=== PATIENT | female | born 1960 | race Caucasian/White ===

== ENCOUNTER 2018-12-19 11:05 | Observation (INO) | payer MEDICARE, OTHER ==
[~2018-12-19] VITALS: Ht 162.6 cm; Wt 96.4 kg
--- NOTE | ~2018-12-19 | HEMODYNAMI ---
PATIENT:REBECA CHENEY MEDICAL RECORD: [id number] : 58 [facility] ADMISSION DATE: 12/19/18 Generatedon:12/20/201810:18 Patient name: REBECA CHENEY Patient #: [id number] SSN: DO B: 1960 Date of study: 12/20/2018 Page: Of Hemodynamic Procedure Report Patient Data Patient Demographics Procedure consent was obtained First Name: REBECA Gender: Female Last Name: NONI : 1960 Patient #: [id number] Age: 58 year(s) Race: Unknown Additional ID: [id number] Contact details [address]: [address] [place] [address] DRIVE State: [place] City: [place] Zip code: [address] Admission Admission Data Admission Date: 12/19/2018 Admission Time: 12:34 Arrival Date: 12/19/2018 Arrival Time: 12:34 Admit Source: Emergency Insurance Payor: Medicare department Room #: D.2122 Height (in.): 64.17 BSA: 2.01 (m2) Height (cm.): 163 BMI: 36.13 (kg/m2) Weight (lbs.): 211.64 Weight (kg.): 96 Lab Results Lab Result Date: 12/20/2018 Lab Result Time: 0:00 Biochemistry Name Units Result Min Max BUN mg/dl 12 --(-*--)-- 7 18 Creatinine mg/dl 0.7 --(*---)-- 0.6 1.3 eGFR ml/min 90 --(*---)-- 90 120 NONAFRICAN CBC Name Units Result Min Max Hemoglobin g/dl 13.4 -*(----)-- 13.5 17.5 Procedure Procedure Types Cath Procedure Diagnostic Procedure LHC LHC w/Coronaries Sedation Charges Moderate Sedation up to 15 minutes Procedure Description Procedure Date Procedure Date: 12/20/2018 Procedure Start Time: 10:03 Procedure End Time: 10:12 Procedure Staff Name Function Meagan Bowie RT Monitor Alexandr Dumas MD Performing Physician Ifeoma De La Fuente RT Scrub Jemma Owen RN Nurse Procedure Data Cath Procedure Fluoroscopy Diagnostic fluoroscopy Total fluoroscopy Time: 1.7 time: 1.7 min min Diagnostic fluoroscopy Total fluoroscopy dose: 270 dose: 270 mGy mGy Contrast Material Contrast Material Type Amount (ml) Isovue 300 67 Entry Location Entry Primary Successful Side Size Upsize Upsize Entry Closure Succes sful Closure Location (Fr) 1 (Fr) 2 (Fr) Remarks Device Remarks Femoral Right 5 Fr Exoseal artery Estimated blood loss: 5 ml Diagnostic catheters Device Type Used For End Catheter Placement MULTIPACK JL 4.0 5Fr Left Coronary catheter Angiography MULTIPACK 3DRC 5Fr Right Coronary catheter Angiography MULTIPACK Pigtail 5 Fr LV Angiography catheter Procedure Complications No complications Procedure Medications Medication Administration Route Dosage 0.9% NaCl I.V. 100 ml/hr Oxygen etCO2 Nasal cannula 2 l/min Lidocaine 2% added to field 20 Heparin Flush Bag added to field 2 bags (1000units/500ml NS) Versed I.V. 2 mg Fentanyl I.V. 50 mcg Fentanyl I.V. 50 mcg Hemodynamics Rest HGB: 13.4 (g/dl) O2 Consumption: Estimated: 188.58 (ml/min) O2 Consumption index ed: Estimated:93.82 (ml/min/m) Heart Rate: 67 (bpm) Pressure Samples Time Site Value (mmHg) Purpose Heart Use Rate(bpm) 10:09 LV 130/15,20 Snapshot 64 Gradients Valve Time Site Site Mean SEP/DFP Peak To Heart Use 1 2 (mmHg) (sec/min) Peak Rate (mmHg) (bpm) Aortic 10:09 LV AO 67 Snapshots Pre Cath Intra NCS Post Cath Vital Signs Time Heart Resp SPO2 etCO2 NIBP (mmHg) Rhythm Pain Sedation Rate (ipm) (%) (mmHg) Status Level (bpm) 9:55:55 65 17 98 48 140/82(105) NSR 0 (11) 10(A) , No pain 10:00:13 66 14 98 15.7 131/73(98) NSR 0 (11) 10(A) , No pain 10:05:12 66 14 98 26.2 Measuring NSR 0 (11) 9(A) , No pain 10:05:31 65 16 98 20.9 129/77(114) NSR 0 (11) 9(A) , No pain 10:10:30 70 18 97 53.2 Measuring NSR 0 (11) 9(A) , No pain 10:10:50 71 17 98 46.4 131/81(100) NSR 0 (11) 10(A) , No pain Medications Time Medication Route Dose Verified Delivered Reason Notes Eff ectiveness by by 9:56:24 0.9% NaCl I.V. 100 Alexandr Jemma used for ml/hr Piter Brayden procedure MD DANG 9:56:30 Oxygen etCO2 2 Alexandr Jemma used for Nasal l/min Piter Brayden procedure cannula MD DANG 9:56:36 Lidocaine 2% added 20ml Alexandr Strange for local to vial [facility] anesthetic field MD DAVIS 9:56:40 Heparin Flush added 2 Alexandr Alexandr used for Bag to bags [facility] procedure (1000units/500ml field MD DAVIS NS) 9:57:11 Versed I.V. 2 mg Alexandr Jemma for PiterHayder Owen sedation MD DANG 9:57:24 Fentanyl I.V. [address] mcg [address] Hayder Owen sedation MD DANG 10:02:21 Fentanyl I.V. 50 Alexandr Vegayla for mcg [address] Hayder Owen sedation MD DANGcorrectional supervisor lieutenant Log Time Note 9:29:34 Procedure Status Urgent Heart Cath (IP). 9:29:36 Time tracking: Call back (After hours or weekends) 9:29:39 Jemma Owen RN sent for patient. Start room use. 9:43:19 Lab Result : eGFR NONAFRICAN 90 ml/min 9:43:19 Lab Result : Hemoglobin 13.4 g/dl 9:43:19 Lab Result : BUN 12 mg/dl 9:43:19 Lab Result : Creatinine 0.7 mg/dl 9:43:28 1) 90+ Normal kidney functon but urine findings or structural abnormalities or genetic trait point to kidney disease. 9:43:34 Maximum allowable contrast dose (3.7 X eGFR X 0.75)250 ml. 9:43:51 Arrival Date: 12/19/2018 12:34:00 PM 9:43:57 Insurance Payor : Medicare 9:44:01 Admit Source: Emergency department 9:44:07 Patient Height : 64.17 inches 9:44:11 Patient Weight : 211.64 lbs 9:45:52 Plan of Care:Hemodynamics will remain stable., Cardiac rhythm will remain stable., Comfort level will be maintained., Respiratory function will remain adequate., Patient/ family verbilizes understanding of procedure., Procedure tolerated without complication., Recovers from procedure without complications.. 9:45:58 ACC Patient presents with Unstable Angina CCS Anginal Class 4--Inability to carry out any physical activity w/o angina. Angina may occur at rest. 9:54:37 Vital chart was started 9:55:16 Patient received from Med II to CCL 1 Alert and oriented. Tansferred to table in Supine position. 9:55:18 Signed procedure consent form obtained from patient. 9:55:19 Warm blankets applied, and anat hugger turned on for patient comfort. 9:55:20 ECG and BP/O2 sat monitors applied to patient. 9:55:20 Correct patient and procedure confirmed by team. 9:55:22 Baseline sample Acquired. 9:55:25 Rhythm: sinus rhythm 9:55:27 Full Disclosure recording started 9:55:30 H&P Date Dictated: 12/20/2018 New H&P dictated by physician.. 9:55:32 Pre-op teaching completed and patient verbalized understanding. 9:55:32 Pre-procedure instructions explained to patient. 9:55:34 Family in patients room. 9:55:35 Patient NPO since Midnight. 9:55:38 Is the patient allergic to Iodine/contrast media? No. 9:55:39 Was the patient premedicated? No 9:55:41 Is patient on blood thinner?No 9:55:43 Patient diabetic? No. 9:55:46 Previous problem with sedation/anesthesia? No ? 9:55:48 Snore? Yes 9:55:49 Sleep apnea? Yes 9:55:50 Opens mouth fully? Yes 9:55:50 Deviated septum? No 9:55:51 Sticks out tongue? Yes 9:55:53 Airway obstruction? No ? 9:55:56 Dentures? No ? 9:56:00 Pre procedure: right dorsailis pedis pulse 2+ Normal; easily identifiable; not easily obliterated 9:56:02 Pre procedure: left dorsailis pedis pulse 2+ Normal; easily identifiable; not easily obliterated 9:56:04 Patient pain scale 0/10 ?. 9:56:20 IV patent on arrival in right forearm with 0.9% NaCl at [facility]. 9:56:22 Lab results completed and on chart. 9:56:24 0.9% NaCl 100 ml/hr I.V. was administered by Jemma Owen RN; used for procedure; Verbal order read back and verified. 9:56:26 Right groin area was prepped with chlora-prep and draped in sterile fashion 9:56:28 Sharps counted by scrub and verified by R.N. 9:56:28 Alarms reviewed by R. N. 9:56:30 --------ALL STOP TIME OUT------ 9:56:30 Physician arrived 9:56:30 Oxygen 2 l/min etCO2 Nasal cannula was administered by Jemma Owen RN; used for procedure; Verbal order read back and verified. 9:56:31 Final Timeout: patient, procedure, and site verified with staff and physician. All members of the team are in agreement. 9:56:34 Right groin site verified by team. 9:56:36 Lidocaine 2% 20ml vial added to field was administered by Alexandr Dumas MD; for local anesthetic; Verbal order read back and verified. 9:56:38 Fire Safety Assessment: A--An alcohol-based skin anteseptic being used preoperatively., C--Open oxygen or nitrous oxide is being used., D--An ESU, laser, or fiber-optic light is being used. 9:56:40 Heparin Flush Bag (1000units/500ml NS) 2 bags added to field was administered by Alexandr Dumas MD; used for procedure; Verbal order read back and verified. 9:56:41 Physical assessment completed. ASA score P 2 - A patient with mild systemic disease as per Alexandr Dumas MD. 9:56:46 Sedation plan: IV Moderate Sedation Medication:Versed, Fentanyl 9:56:49 Use device set Femoral Dx 9:56:50 ACIST Syringe (56782) opened to sterile field. 9:56:51 Medline Cath Pack ([id number]) opened to sterile field. 9:56:51 Bag Decanter (2002) opened to sterile field. 9:56:53 ACIST Manifold (02571) opened to sterile field. 9:56:53 ACIST Hand Control (23705) opened to sterile field. 9:56:54 Tegaderm 4 x 4 (1626W) opened to sterile field. 9:56:54 DIAGNOSTIC Multipack 5Fr catheter set (QX2314) opened to sterile field. 9:56:55 SHEATH 5FR Bethany (OTH052) opened to sterile field. 9:56:56 EMERALD Guide Wire (035-746) opened to sterile field. 9:57:11 Versed 2 mg I.V. was administered by Jemma Owen RN; for sedation; Verbal order read back and verified. 9:57:24 Fentanyl 50 mcg I.V. was administered by Jemma Owen RN; for sedation; Verbal order read back and verified. 10:00:30 Procedure started. 10:02:21 Fentanyl 50 mcg I.V. was administered by Jemma Owen RN; for sedation; Verbal order read back and verified. 10:03:21 Local anesthetic to right femoral artery with Lidocaine 2% by Alexandr Dumas MD.INITIAL ACCESS ONLY 10:03:57 A 5 Fr sheath was inserted into the Right Femoral artery 10:04:14 A MULTIPACK JL 4.0 5Fr catheter was advanced over the wire and used for Left Coronary Angiography. 10:04:40 LCA angiography performed. 10:04:44 Injector settings: Ml/sec: 3, Volume: 6, 10:05:53 Catheter removed. 10:06:12 A MULTIPACK 3DRC 5Fr catheter was advanced over the wire and used for Right Coronary Angiography. 10:06:34 RCA angiography performed. 10:06:38 Injector settings: Ml/sec: 3, Volume: 6, 10:06:56 Bilateral carotid angiography performed. 10:08:09 Injector settings: Ml/sec: 3, Volume: 6, 10:08:16 Catheter removed. 10:08:20 A MULTIPACK Pigtail 5 Fr catheter was advanced over the wire and used for LV Angiography. 10:09:10 LV hemodynamics recorded. 10:09:11 LV gram done using SHOEMAKER 10:09:14 Injector settings: Ml/sec: 5, Volume: 15, 10:09:21 EF : 55 % 10:09:27 EXOSEAL 5Fr (EX500) opened to sterile field. 10:09:32 ACCDominant side:Right 10:09:35 Catheter removed. 10:09:44 Sheath removed intact; hemostasis achieved with Exoseal to the Right Femoral artery. 10:10:24 Procedure ended.(Physican Out) 10:11:08 Fluoroscopy time 01.70 minutes. 10:11:12 Fluoroscopy dose: 270 mGy 10:11:12 Flurop Dose total: 270 10:11:18 Dose Area Product 39996 mGy/cm. 10:11:22 Contrast amount:Isovue 300 67ml. 10:11:23 Sharps counted by scrub and verified by R.N. 10:11:24 Insertion/operative site no bleeding no hematoma. 10:11:27 Post-op/insertion site Right Femoral artery dressed using a 4 x 4 and Tegaderm. 10:11:30 Post procedure rhythm: unchanged. 10:11:33 Estimated blood loss: 5 ml 10:11:34 Post procedure instruction explained to patient.Patient verbalizes understanding. 10:11:35 Patient needs reinforcement of post procedure teaching. 10:11:44 Procedure type changed to Cath procedure, Diagnostic procedure, LHC, LHC w/Coronaries, Sedation Charges, Moderate Sedation up to 15 minutes 10:11:45 Procedure and supply charges have been captured, reviewed, submitted and are correct. 10:11:50 Procedure Complication : No complications 10:11:56 See physician's report for complete and final results. 10:11:56 Vital chart was stopped 10:11:59 Report given to [facility]. 10:12:02 Patient transfered to [facility] with Stretcher. 10:12:04 Full Disclosure recording stopped 10:12:04 Procedure ended. 10:12:16 End room use (Document Last) 10:14:55 Jemma Owen RN was relieved by Jemma Owen RN as monitoring person Device Usage Item Name Manufacture Quantity Catalog Hospital Part Current Minimal L ot# / Number Charge Number Stock Stock Serial# Code ACIST Acist 1 75010 568458 552825 794039 20 Syringe Snapfinger[employer] Inc. (46450) Systems Inc Bag Microtek 1 971693 37248 258952 5 Decanter Medical Inc. () Medline Medline 1 [id number] 704086 68382 214422 5 Cath Pack ([id number]) ACIST Hand Acist 1 25890 118473 620974 927294 5 Control Medical (16108) Systems Inc ACIST Acist 1 45894 176012 597721 192667 5 Manifold Medical (86201) Systems Inc DIAGNOSTIC Cardinal 1 [id number] 041181 39664 059424 30 Multipack Health 5Fr catheter set (UX6692) Tegaderm 4 3M 1 1626W 111127 076702 890325 5 x 4 (1626W) SHEATH 5FR Terumo 1 SYV480 812609 231158 725555 5 Bethany (GXD510) EMERALD Cardinal 1 502455 042056 906917 567834 5 Guide Wire Boardvote (502-076) MULTIPACK Cardinal 1 604833 5 JL 4.0 5Fr Health catheter MULTIPACK Cardinal 1 702961 5 3DRC 5Fr Boardvote catheter MULTIPACK Cardinal 1 080554 5 Pigtail 5 Health Fr catheter EXOSEAL 5Fr Cardinal 1 EX500 091744 764583 475609 10 (EX500) Health Signature Audit Roland Stage Time Signature Unsigned Intra-Procedure 12/20/2018 Meagan Bowie 10:14:35 AM RT(R) Intra-Procedure 12/20/2018 Alexandr Finley 10:15:21 AM Hayder DAVIS; Meagan Bowie RT(R) [facility] [address] [place] [address]
[2018-12-19 11:38] LABS: BASOPHILS 0.3 % (0-2); EOSINOPHILS 1.3 % (0-7); HEMATOCRIT 41.3 % (36.0-48.0); HEMOGLOBIN 14.4 g/dL (12-16); IMMATURE GRANULOCYTES 0.2 % (0-5); LYMPHOCYTES 20.1 % (15-50); MCH 31.4 pg (26.0-34.0); MCHC 34.9 g/dL (31.0-37.0); MEAN PLATELET VOLUME 9.6 fL (7.4-10.4); MONOCYTES 7.5 % (2-11); NEUTROPHILS 70.6 % (40-80); PLATELET COUNT 245 10x3/uL (130-400); RBC 4.59 10x6/uL (4.00-5.40); RDW 11.8 % (11.5-14.5); WBC 6.3 10x3/uL (4.8-10.8)
[2018-12-19 11:47] LABS: APTT 35.3 SECONDS (22.8-39.4); INR 0.98 (0.85-1.17); PROTIME 12.5 SECONDS (11.6-15.0)
[2018-12-19 11:53] LABS: ALBUMIN 3.8 g/dL (3.4-5.0); ALKALINE PHOSPHATASE 123 U/L (46-116); ALT (SGPT) 43 U/L (10-68); BILIRUBIN - TOTAL 0.31 mg/dL (0.2-1.3); CALC OSMOLALITY 267 mosm/kg (275-300); CALCIUM 8.7 mg/dL (8.5-10.1); CARBON DIOXIDE 31.7 mmol/L (21.0-32.0); CHLORIDE - SERUM 98 mmol/L (98-107); CREATININE - SERUM 0.9 mg/dL (0.6-1.3); GLUCOSE 98 mg/dL (74-106); POTASSIUM - SERUM 4.4 mmol/L (3.5-5.1); PROTEIN - SERUM 7.6 g/dL (6.4-8.2); SODIUM 134 mmol/L (136-145); UREA NITROGEN 12 mg/dL (7-18); eGFR NON AFRICAN AMERICAN 68 mL/min (90-120)
[2018-12-19 12:05] LABS: CKMB 0.4 U/L (0.0-3.6); CREATINE KINASE 59 UL (21-215); MAGNESIUM - SERUM 1.9 mg/dL (1.8-2.4); TROPONIN-I < 0.017 ng/mL (0.000-0.060)
[2018-12-19 12:41] VITALS: BP 117/49
--- NOTE | 2018-12-19 15:24 | NUR ---
PT ARIVED VIA WHEELCHAIR TO ROOM. ALERT AND ORIENTED, UP WITHOUT ASSIST. CL IN REACH, SRX2W. AT BEDSIDE
[2018-12-19] MEDS ORDERED: SOMA350 MG PO (15:32)
[2018-12-19] MEDS ORDERED: ADDERALL 10 MG10 MG PO (15:32)
[2018-12-19] MEDS ORDERED: VIIBRYD40 MG PO (15:32)
[2018-12-19] MEDS ORDERED: GEODON60 MG PO (15:34)
[2018-12-19] MEDS ORDERED: ESTRACE 0.5 MG0.5 MG PO (15:34)
[2018-12-19] MEDS ORDERED: PERCOCET 10-321 EAC1 (15:35)
[2018-12-19] MEDS ORDERED: TRILEPTAL300 MG PO (15:35)
[2018-12-19] MEDS ORDERED: ULTRAM50 MG PO (15:36)
[2018-12-19] MEDS ORDERED: UNITHROID75 MCG PO (15:37)
[2018-12-19 17:56] LABS: CKMB 0.6 U/L (0.0-3.6); CREATINE KINASE 49 UL (21-215); TROPONIN-I < 0.017 ng/mL (0.000-0.060)
[2018-12-19 18:16] VITALS: Ht 162.6 cm; Wt 96.4 kg
--- NOTE | 2018-12-19 18:33 | NUR ---
ASSESSMENT COMPLETE AT THIS TIME NAD NOTED PT DENIES ANY PAIN OR DISCOMFORT NAD NOTED AT BEDSIDE
--- NOTE | 2018-12-19 19:15 | NUR ---
RECEIVED REPORT, WILL ASSUME CARE OF PT, DENIES ANY NEEDS, BED IS LOW, SRX2, CALL LIGHT IN REACH, WILL CONTINUE PLAN OF CARE
[2018-12-19 19:59] VITALS: BP 131/68
--- NOTE | 2018-12-19 20:21 | NUR ---
HOME HEALTH BILLING SPECIALIST ASSISTED PT TO SHOWER
[2018-12-19 23:42] VITALS: BP 118/52
[2018-12-20 03:50] VITALS: BP 113/56
--- NOTE | 2018-12-20 04:55 | NUR ---
I have reviewed this patient and I concur with the Shift Assessment completed by the Licensed Practical Nurse today this shift.
[2018-12-20 06:23] LABS: BASOPHILS 0.4 % (0-2); EOSINOPHILS 2.2 % (0-7); HEMATOCRIT 38.5 % (36.0-48.0); HEMOGLOBIN 13.4 g/dL (12-16); IMMATURE GRANULOCYTES 0.2 % (0-5); LYMPHOCYTES 27.8 % (15-50); MCHC 34.8 g/dL (31.0-37.0); MCV 89.1 fL (80.0-100.0); MEAN PLATELET VOLUME 9.8 fL (7.4-10.4); MONOCYTES 9.7 % (2-11); NEUTROPHILS 59.7 % (40-80); PLATELET COUNT 238 10x3/uL (130-400); RBC 4.32 10x6/uL (4.00-5.40); RDW 11.6 % (11.5-14.5)
[2018-12-20 06:39] LABS: ALBUMIN 3.3 g/dL (3.4-5.0); ALKALINE PHOSPHATASE 109 U/L (46-116); ALT (SGPT) 49 U/L (10-68); BILIRUBIN - TOTAL 0.24 mg/dL (0.2-1.3); CALC OSMOLALITY 267 mosm/kg (275-300); CALCIUM 8.5 mg/dL (8.5-10.1); CARBON DIOXIDE 29.2 mmol/L (21.0-32.0); CHLORIDE - SERUM 98 mmol/L (98-107); CREATININE - SERUM 0.7 mg/dL (0.6-1.3); GLUCOSE 95 mg/dL (74-106); MAGNESIUM - SERUM 1.8 mg/dL (1.8-2.4); POTASSIUM - SERUM 3.9 mmol/L (3.5-5.1); PROTEIN - SERUM 6.7 g/dL (6.4-8.2); SODIUM 134 mmol/L (136-145); UREA NITROGEN 12 mg/dL (7-18); eGFR NON AFRICAN AMERICAN > 90 mL/min (90-120)
--- NOTE | 2018-12-20 07:34 | NUR ---
PT AWAKE AND ORIENTED, NO COMPLAINTS OR CONCERNS AT THIS TIME. ALL QUESTIONS ANSWERED TO THE BEST OF MY ABILITY. CL IN REACH, SRX2.
[2018-12-20 08:00] VITALS: BP 130/67
--- NOTE | 2018-12-20 09:48 | NUR ---
PT TAKEN TO DIRECTOR OF SOCIAL SERVICES.
--- NOTE | 2018-12-20 10:17 | NUR ---
CLEAN CATH, RIGHT GROIN 5 SIERRA LEONEAN EXOCEAL.
--- NOTE | 2018-12-20 12:13 | OP ---
PATIENT NAME: REBECA CHENEY MEDICAL RECORD: [id number] :58 LOCATION:D.M2 D.2122 ADMISSION DATE:12/19/18 SURGEON: DORI PATTERSON MD DATE OF OPERATION: 12/20/2018 PROCEDURE: Left heart catheterization, selective coronary angiography, right femoral artery approach. CATHETERS: A 5-Urdu sheath, 5/4 left and right Mukesh, 5/4 pig. The procedure was well tolerated. The patient returned to gupta. Sheath removed. ExoSeal device placed. FINDINGS: Left ventriculography in 30-degree SHOEMAKER view: Normal wall motion, normal systolic function. CORONARY ANATOMY: LEFT MAIN: Left main is free of disease. LAD: Free of disease in the diagonal system. CIRCUMFLEX: Free of disease in the marginal system. RIGHT CORONARY ARTERY: Dominant artery, gives rise to PDA, free of disease. DESCRIPTION OF PROCEDURE: The catheter was drawn proximally and the right common carotid was selectively engaged. It shows smooth-walled vessel, free of disease. Right external carotid showed some wall disease and no flow obstructive. Right internal carotid is free of disease. The left common carotid was then selectively engaged. This showed a smooth-walled left common carotid, free of disease. Left internal carotid, there was smooth-walled vessel, free of disease. Left external carotid, again some wall disease, but no flow obstructive stenosis. IMPRESSION: Normal LV systolic function, normal coronary anatomy. No significant cerebrovascular disease. TRANSINT:[id number] Voice Confirmation ID: [id number] DOCUMENT ID: [id number] DORI PATTERSON MD at 1213 CC: [id number] DICTATION DATE: 12/20/18 1024 DOT COMPLIANCE SPECIALIST: 12/20/18 1119 ADM IN [facility] [address] [place] [address]
--- NOTE | 2018-12-20 12:13 | EC ---
PATIENT:REBECA CHENEY DATE OF SERVICE: 12/19/18 SEX: F MEDICAL RECORD: [id number] DATE OF : 58 LOCATION:D.M2 D.212 AGE OF PATIENT: 58 ADMISSION DATE: 12/19/18 REFERRING PHYSICIAN: INTERPRETING PHYSICIAN: DORI PATTERSON MD ECHOCARDIOGRAM REPORT ECHO CHARGES 4 ECHO COMPLETE Date: 12/19/18 CLINICAL DIAGNOSIS: CP ECHOCARDIOGRAPHIC MEASUREMENTS (adult normal given) AC root (d.<3.7cm) 3.2 cm LV Septum d (<1.2 cm> 1.3 cm Valve Excursion 2.0 cm LV Septum (systole) 1.9 cm Left Atria (s.<4.0cm> 4.0 cm LVPW d(<1.2cm) 1.1 cm RV (d.<2.3cm) 2.8 cm LVPW (sytole) 1.7 cm LV diastole(<5.6CM) 6.1 cm MV E-F(>70mm/sec) cm LV systole 3.5 cm LVOT Diameter 1.7 cm MV exc.(>10mm) cm Est.ejection fraction (50-75%) % DOPPLER: LVIT cm/sec A 60.0 cm/sec E 90.0 cm/sec LA cm/sec RVSP 26.0 mmHg LVOT 86.0 cm/sec AOP1/2T m/s Asc. Ao 126 cm/sec RVOT 56.0 cm/sec RA cm/sec PA 96.0 cm/sec AV Gradient Peak 6.3 mmHg AV Mean 3.6 mmHg AV Area 1.2 cm MV Gradient Peak 3.3 mmHg MV Mean 1.3 mmHg MV Area cm COMMENTS: Toolsmith: Susanne MONTEJOOE Stamp Maker: 3 Dr. Anderson TAPE# PACS Pericardial Effusion N DATE OF SERVICE: Adequate 2D, color flow, spectral Doppler, and M-mode. Borderline LVH. LV internal dimensions are normal. Wall motion is normal. EF is greater than or equal to 55%. Aortic valve is tricuspid. No evidence of stenosis by Doppler interrogation. Left atrium is normal at 4.0 cm. Mitral valve shows no prolapse. Trace MR. Right-sided chambers are grossly normal. Trace TR. TRANSINT:[id number] Voice Confirmation ID: [id number] DOCUMENT ID: [id number] ECHOCARDIOGRAM REPORT [id number] REBECA CHENEY,DORI Hinton MD at 1213 CC: [id number] DICTATION DATE: 12/20/18903 BUSINESS ETHICS PROFESSOR: 12/20/18 1059 ADM IN [place] [id number] [place] [id number]
--- NOTE | 2018-12-20 13:26 | NUR ---
PT UP AND WALKING POST CATH, NO PROBLEMS. NO BLEEDING AT SITE. NO COMPLAINTS OR CONCERNS VOICED AT THIS TIME. DC PENDING
--- NOTE | 2018-12-20 13:47 | NUR ---
PT ESCORTED OUT VIA WHEELCHAIR TO POV.
--- NOTE | 2018-12-21 09:29 | MORECARE ---
CASE MANAGEMENT DISCHARGE SUMMARY PATIENT: REBECA CHENEY UNIT: [id number] ADM DATE: 12/19/18 AGE: 58 : 58 SEX: F ROOM/BED: D.7512 AUTHOR: JOSÉ SORTO PHYSICIAN: REFERRING PHYSICIAN: INDERJIT TA DO DATE OF SERVICE: 12/21/18 Discharge Plan Patient Name: REBECA CHENEY Facility: [facility]:[place] : 1960 Planned Disposition: Home Anticipated Discharge Date: 12/20/18 Discharge Date: 12/20/2018 Expected LOS: 1 Initial Reviewer: [email or web address] Initial Review Date: 12/21/2018 Generated: 12/21/18 10:29 am Patient Name: REBECA CHENEY Page [id number] at 0929 All edits/amendments must be made on the electronic document DICTATION DATE: 12/21/18928 CLOUD SUBJECT MATTER EXPERT: DM 12/21/18928 RPT#: [id number] DC DATE:12/20/18 STATUS: DIS IN [facility] [address] [place] [address] END OF REPORT
--- NOTE | 2018-12-23 11:07 | CN ---
PATIENT NAME:REBECA CHENEY MEDICAL RECORD: [id number] : 58 LOCATION:D. D.2122 ADMIT DATE: 12/19/18 ACCOUNT: [id number] CONSULTING PHYSICIAN: DORI PATTERSON MD REFERRING PHYSICIAN: INDERJIT TA DO DATE OF CONSULTATION: 12/20/2018 HISTORY OF PRESENT ILLNESS: A 58-year-old female with no known history of coronary artery disease has a strong family history of coronary artery disease, about a 4-day history of rapidly progressive symptomatology with chest tightness and pressure with exertion, secondary symptoms of visual changes, lightheadedness, dizziness and had near syncope consistent with amaurosis as well. She was awakened with chest pain radiating to the jaw on the date of admission. We are asked to see her concerning her cardiovascular status. PAST MEDICAL HISTORY: Includes: 1. History of hyperlipidemia, currently not on therapy. 2. She has a history of bipolar disorder. 3. Hypothyroidism. 4. Fibromyalgia. ALLERGIES: INCLUDE SULFA, LAMICTAL, LATEX. MEDICATIONS: On admission include Soma 350 q.h.s., Viibryd 40 mg p.o. daily, Geodon 60 q.h.s., Trileptal 300 mg b.i.d., tramadol 50 q.6 hours p.r.n., Adderall 10 mg t.i.d., Synthroid 75 mcg every day. SOCIAL HISTORY: Nonsmoker, nondrinker. No set exercise program. REVIEW OF SYSTEMS: The patient reports easy bruising but reports no swollen glands. The patient reports no fever, no night sweats, no significant weight gain, no significant weight loss. No significant exercise tolerance. The patient reports no dry eyes, no irritation, no vision change. Patient reports no difficulty hearing and no ear pain. Patient reports no frequent nose bleeds or nose and sinus problems. Patient reports on arm pain on exertion. No shortness of breath while lying down. No history of heart murmur. Patient reports no cough, no wheezing or coughing up blood. Patient reports no abdominal pain, no vomiting. Normal appetite. No diarrhea and not vomiting blood. No nausea and no constipation. Patient reports no incontinence. No difficulty urinating. No hematuria. No increased frequency. Patient reports no muscle aches. No weakness, no arthralgias, no back pain. No swelling of the extremities. Patient reports no abnormal mole, no jaundice, no rashes. Reports no loss of consciousness. No weakness and no numbness. No seizures, dizziness, or headaches. The patient reports no depression, no sleep disturbance, feeling safe in a relationship and no alcohol abuse. Patient reports on fatigue. Reports no runny nose or sinus pressure. No itching, no hives, and no frequent sneezing. PHYSICAL EXAMINATION: GENERAL: Well-developed, well-nourished female, appears stated age. VITAL SIGNS: Blood pressure 113/56, pulse 75 and regular. HEENT: Normocephalic, atraumatic. NECK: No JVD or bruit. HEART: Regular. II/ systolic ejection murmur. LUNGS: Good air excursion. CONSULT REPORT [id number] REBECA CHENEY ABDOMEN: Soft, nontender. EXTREMITIES: Pulses 2+. There is no edema. NEUROLOGIC: Grossly intact. IMPRESSION: 1. Acute coronary syndrome with class IV angina. 2. Amaurosis fugax. 3. Strong family history of coronary artery disease. 4. Bipolar. PLAN: For angiography, 4-vessel arteriography. Intervention based on the above. TRANSINT:[id number] Voice Confirmation ID: [id number] DOCUMENT ID: [id number] DORI PATTERSON MD at 1107 CC: [id number] DICTATION DATE: 12/20/18 0855 CRUDE OIL TREATER: 12/20/18 1047 DIS IN 12/20/18 [place] [id number] [place] [address]
== END 2018-12-20 13:49 | disposition home or self-care (01) ==
LOC: D.ER 11:05 → D.M2 12:34 → OBSVTIME 13:01 → D.M2 12-20 13:49
PROVIDERS: Family Medicine; ADMIT Family Medicine; ATTEND Family Medicine
DX: I20.0 Unstable angina (principal); E03.9 Hypothyroidism, unspecified; F31.9 Bipolar disorder, unspecified; G25.81 Restless legs syndrome; M79.7 Fibromyalgia; E87.1 Hypo-osmolality and hyponatremia; R42 Dizziness and giddiness; H53.9 Unspecified visual disturbance